=== PATIENT | female | born 1955 | race Caucasian/White ===

== ENCOUNTER 2018-07-06 06:54 | Day surgery (SDC) | payer OTHER ==
[2018-07-06] MEDS ORDERED: LIDOCAINE 2% (SDV) 5 ML INJ (07:00)
[2018-07-06] MEDS ORDERED: PROPOFOL 40 ML (08:15)
== END 2018-07-06 13:35 | disposition home or self-care (01) ==
LOC: GIL 06:54
DX: Z12.11 Encounter for screening for malignant neoplasm of colon (principal); K64.4 Residual hemorrhoidal skin tags
CPT/HCPCS: 45378